=== PATIENT | male | born 1955 | race Caucasian/White ===

== ENCOUNTER → 2023-06-20 | Outpatient (CLI) | payer OTHER | END | disposition home or self-care (01) | LOC: LAB 08:45 → LAB SHORT 08:45 | PROVIDERS: Hospitalist | DX: E11.69 Type 2 diabetes mellitus with other specified complication (principal) | CPT/HCPCS: 82043; 82570 ==

== ENCOUNTER → 2023-07-02 | Outpatient (CLI) | payer OTHER ==
[2023-07-02 15:45] LABS: Hematocrit 43.2 % (37.0-53.0); Hemoglobin 14.2 g/dL (13.5-17.5); Mean Corpuscular HGB Conc 32.9 g/dL (31.5-36.5); Mean Corpuscular Volume 85 fL (80-100); Mean Platelet Volume 10.5 fL (9.1-12.4); Platelet Count 186 K/mm3 (150-400); RDW Coefficient Variation 14.2 % (11.7-14.2); RDW Standard Deviation 43.8 fL (35.1-46.3); Red Blood Cell Count 5.08 M/mm3 (4.30-5.90); White Blood Cell Count 10.88 K/mm3 (4.00-11.30)
[2023-07-02 16:54] LABS: BASOPHILS ABSOLUTE MAN 0.21 K/mm3 (0.00-0.23); BASOPHILS PERCENT MAN 2 % (0-2); EOSINOPHILS ABSOLUTE MAN 0.21 K/mm3 (0.00-0.68); EOSINOPHILS PERCENT MAN 2 % (0-6); LYMPHOCYTES ABSOLUTE MAN 5.65 K/mm3 (0.84-5.20); LYMPHOCYTES PERCENT MAN 52 % (21-46); MONOCYTES ABSOLUTE MAN 0.32 K/mm3 (0.16-1.47); MONOCYTES PERCENT MAN 3 % (4-13); NEUTROPHILS ABSOLUTE MAN 4.46 K/mm3 (1.96-9.15); SEG NEUTROPHILS PERCENT MAN 41 % (41-73); TOTAL CELLS COUNTED 100
== END ==
LOC: LAB SHORT 14:22 → LAB 14:22
PROVIDERS: Hospitalist
DX: R60.0 Localized edema (principal)
CPT/HCPCS: 85025; 85651

== ENCOUNTER 2024-10-14 16:51 | Emergency (ER) | payer OTHER ==
[~2024-10-14] VITALS: Ht 177.8 cm; Wt 68.0 kg
[2024-10-14 17:16] VITALS: BP 177/70
[2024-10-14] MEDS ORDERED: ACET500 PO (18:35)
[2024-10-16] MEDS ORDERED: METF500 PO (08:01)
[2024-10-16] MEDS ORDERED: PANTOPRAZOLE SO40 M2 PO (08:01)
== END 2024-10-14 18:43 | disposition home or self-care (01) ==
LOC: ER 16:51
DX: S06.0X9A Concussion with loss of consciousness of unspecified duration, initial encounter (principal); W50.0XXA Accidental hit or strike by another person, initial encounter
CPT/HCPCS: 70450; 99284-25

== ENCOUNTER 2024-10-15 13:22 | Emergency (ER) | payer OTHER ==
[~2024-10-15] VITALS: Ht 172.7 cm; Wt 70.3 kg
[~2024-10-15 13:22] MED LIST: ACET500 PO
[2024-10-15 13:49] VITALS: BP 145/87
[2024-10-16] MEDS ORDERED: METF500 PO (08:01)
[2024-10-16] MEDS ORDERED: PANTOPRAZOLE SO40 M2 PO (08:01)
[2024-10-16] MEDS ORDERED: TRAZ50 PO (08:02)
[2024-10-16] MEDS ORDERED: ESCI10 PO (08:02)
== END 2024-10-15 14:35 ==
LOC: ER 13:22
DX: R51.9 Headache, unspecified (principal)
CPT/HCPCS: 99284

== ENCOUNTER 2024-10-16 05:16 | Observation (INO) | payer OTHER ==
[~2024-10-16] VITALS: Ht 167.6 cm; Wt 81.7 kg
[2024-10-16 07:58] LABS: BASOPHILS ABSOLUTE AUTO 0.04 K/mm3 (0.00-0.23); BASOPHILS PERCENT AUTO 0 % (0-2); EOSINOPHILS ABSOLUTE AUTO 0.07 K/mm3 (0.00-0.68); EOSINOPHILS PERCENT AUTO 1 % (0-6); Hematocrit 35.4 % (37.0-53.0); Hemoglobin 11.7 g/dL (13.5-17.5); IMMATURE GRAN ABSOLUTE AUTO 0.02 K/mm3 (0.00-0.10); IMMATURE GRAN PERCENT AUTO 0 % (0-1); LYMPHOCYTES ABSOLUTE AUTO 5.22 K/mm3 (0.84-5.20); LYMPHOCYTES PERCENT AUTO 49 % (21-46); MONOCYTES ABSOLUTE AUTO 0.49 K/mm3 (0.16-1.47); MONOCYTES PERCENT AUTO 5 % (4-13); Mean Corpuscular HGB 28.1 pg (26.0-34.0); Mean Corpuscular HGB Conc 33.1 g/dL (31.5-36.5); Mean Corpuscular Volume 85 fL (80-100); Mean Platelet Volume 9.3 fL (9.1-12.4); NEUTROPHILS ABSOLUTE AUTO 4.85 K/mm3 (1.96-9.15); NEUTROPHILS PERCENT AUTO 45 % (41-73); Platelet Count 209 K/mm3 (150-400); RDW Coefficient Variation 13.8 % (11.7-14.2); RDW Standard Deviation 43.2 fL (35.1-46.3); Red Blood Cell Count 4.16 M/mm3 (4.30-5.90); White Blood Cell Count 10.69 K/mm3 (4.00-11.30)
[2024-10-16] MEDS ORDERED: PANTOPRAZOLE SO40 M2 PO ×2 (08:01)
[2024-10-16] MEDS ORDERED: METF500 PO ×2 (08:01)
[2024-10-16] MEDS ORDERED: TRAZ50 PO (08:02)
[2024-10-16] MEDS ORDERED: ESCI10 PO (08:02)
[2024-10-16 08:06] LABS: Source, Urine Clean Catch
[2024-10-16 08:09] LABS: Appearance, Urine Clear (Clear); Bilirubin, Urine Neg (Neg); Blood, Urine 1+ (Neg); Color, Urine Yellow (P-Yellow); Glucose Qualitative, Urine Neg (Neg); Ketones, Urine 2+ (Neg); Leukocyte Esterase, Urine Neg (Neg); Nitrite, Urine Neg (Neg); Protein, Urine 2+ (Neg); Specific Gravity, Urine 1.025 (1.003-1.022); Urobilinogen, Urine NORM (Normal)
[2024-10-16 08:23] LABS: Ethanol (Alcohol), Blood, Med <3 mg/dL; Salicylate <1.7 mg/dL (2.8-20.0)
[2024-10-16 08:32] LABS: Acetaminophen, Random <2.0 ug/mL (10.0-30.0); Alanine Aminotransfer (ALT/SGP 15 U/L (12-78); Albumin, Blood 3.5 g/dL (3.4-5.0); Albumin/Globulin Ratio 1.1 (0.8-1.8); Alk Phos 75 U/L (50-136); Anion Gap 14 mmol/L (3-11); Aspartate Aminotrans (AST/SGOT 17 U/L (12-37); Bilirubin, Total 0.9 mg/dL (0.1-1.0); Blood Urea Nitrogen 20 mg/dL (8-24); Bun/Creatinine Ratio 24.2 (12.0-20.0); CO2, Blood 24 mmol/L (21-32); Calcium, Blood 9.5 mg/dL (8.5-10.1); Chloride, Blood 104 mmol/L (98-108); Creatinine, Blood 0.83 mg/dL (0.60-1.20); Globulin, Blood 3.3 g/dL (2.2-4.0); Glomerular Filtration Rate 95 (60-); Glucose, Blood 127 mg/dL (70-99); Potassium, Blood 3.9 mmol/L (3.5-5.5); Sodium, Blood 138 mmol/L (136-145); Total Protein, Blood 6.8 g/dL (6.4-8.2)
[2024-10-16 08:35] LABS: U Amphetamine Screen Not Detected; U Barbituate Screen Not Detected; U Benzodiazapine Screen Not Detected; U Buprenorphine Screen Not Detected; U Cannabinoids Screen DETECTED; U Cocaine Screen Not Detected; U Methadone Screen Not Detected; U Methamphetamine Screen Not Detected; U Opiates Screen Not Detected; U Oxycodone Screen Not Detected; U Phencyclidine Screen Not Detected
[2024-10-16 08:37] LABS: Bacteria Not Seen /hpf; Squamous Epithelial Cells Not Seen /hpf (Few); White Blood Cells, Urine Not Seen /hpf (0-5)
[2024-10-16] MEDS ORDERED: LORazepam 1 MG Tab PO ONE (09:30)
[2024-10-16] MEDS ORDERED: LORazepam 2 MG Tab PO SCH (16:00)
[2024-10-16] MEDS ORDERED: LORazepam 2 MG/ML 1ML Injection IM SCH (19:25)
[2024-10-16] MEDS ORDERED: ALUMINUM HYDROX PO ONE (19:45)
[2024-10-16] MEDS ORDERED: MAGNESIUM CARB PO ONE (19:45)
[2024-10-16] MEDS ORDERED: MetFORMIN HCl 500 mg PO SCH (20:15)
[2024-10-16] MEDS ORDERED: Omeprazole 20 MG CapCR PO SCH (21:00)
[2024-10-17] MEDS ORDERED: MetFORMIN HCl 500 mg PO SCH (08:00)
[2024-10-19 18:05] VITALS: BP 101/67
== END 2024-10-19 18:06 ==
LOC: ER 05:16 → EOR 05:17
PROVIDERS: ADMIT Student in an Organized Health Care Education/Training Program
DX: F31.5 Bipolar disorder, current episode depressed, severe, with psychotic features (principal); Z79.84 Long term (current) use of oral hypoglycemic drugs; Z79.899 Other long term (current) drug therapy
CPT/HCPCS: 80053; 80320; 81001; 85025; 93005; 93010; 99285-25; A9270; G0378; G0480

== ENCOUNTER 2024-10-19 16:15 | Inpatient (IN) | payer OTHER ==
[~2024-10-19] VITALS: Ht 172.7 cm; Wt 68.6 kg
[~2024-10-19 16:15] MED LIST changes: +ESCI10 PO; +METF500 PO; +PANTOPRAZOLE SO40 M2 PO; +TRAZ50 PO
[2024-10-19] MEDS ORDERED: Melatonin 3 MG Tab PO PRN (17:10)
[2024-10-19] MEDS ORDERED: Aluminum Hydroxide 320MG/5ML 473 ML PO PRN (17:10)
[2024-10-19] MEDS ORDERED: Ibuprofen 600 MG Tab PO PRN (17:10)
[2024-10-19] MEDS ORDERED: FLU VACC TS2024-25(6MOS UP)/PF 45 MCG/0.5 ML SYRINGE IM SCH (17:10)
[2024-10-19] MEDS ORDERED: Calcium Carbonate 500 MG Tab Chew PO PRN (17:10)
[2024-10-19] MEDS ORDERED: Polyethylene Glycol 3350 17 gm PO PRN (17:10)
[2024-10-19] MEDS ORDERED: Acetaminophen 325 MG TABLET PO PRN (17:10)
[2024-10-19] MEDS ORDERED: LORazepam 2 MG/ML 1ML Injection IM PRN (17:15)
[2024-10-19] MEDS ORDERED: LORazepam 2 MG Tab PO SCH (18:00)
[2024-10-19 18:26] VITALS: BP 98/72
[2024-10-19 18:45] VITALS: BP 98/72
[2024-10-19 19:06] VITALS: BP 98/72
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
[2024-10-19 20:31] VITALS: BP 117/73
[2024-10-19] MEDS ORDERED: MetFORMIN HCl 500 mg PO SCH (20:55)
--- NOTE | 2024-10-19 22:37 | NUR ---
SHIFT SUMMARY Pt is A&O, calm, cooperative, eye contact is appropriate. Pt states that his mood is "calm," affect is blunted and sad. Pt denies SI, HI, and hallucinations. No c/o pain. Pt states that he is not and has not been suicidal in years. He admits to a suicide attempt in the remote past. Pt stated that he normally weighs about 178 pounds, but weighed 151 today and has lost this weight since June. Pt had a snack in the dining room. Per provider, pt is not to received any antipsychotic medications DT possible neuroleptic malignant syndrome. Pt is to be given 2mg lorazepam q4h, last dose was at 1941. Staff continues to monitor q15m for safety and wellness.
--- NOTE | 2024-10-19 23:10 | NUR ---
Report received from Minor CHRISTIANSON. Next Ativan due 2400 ON TIME. Patient was OOB asking this RN about the "plan for the night". Explained medication schedule overnight. Also asked about having his children visit him tomorrow afternoon. Explained our visitation schedule and patient was satisfied. Will continue very close monitoring every 15 minutes for safety.
--- NOTE | 2024-10-20 04:49 | NUR ---
Patient is Alert and oriented times 3-4. He is profoundly sad and describes himself as broken. "I did not realize how sick I am". He was pleasant and cooperative with cares and visited with his peers for short periods of time, although he was quite exhausted, and spent quite a bit of time in bed before lights out. No difficulties with pocketing oral medications. Patient was very cooperative with cares. Denies SI or HI during evening assessment, and stated he did not feel he was having any AVTH. Will continue close observations every 15 minutes for safety and comfort
[2024-10-20] MEDS ORDERED: Pantoprazole Sodium 40 MG Tab PO SCH (06:00)
[2024-10-20 08:21] VITALS: BP 104/73
[2024-10-20] MEDS ORDERED: Multivitamins 1 Tab PO SCH (09:00)
[2024-10-20 10:46] LABS: BASOPHILS ABSOLUTE AUTO 0.03 K/mm3 (0.00-0.23); BASOPHILS PERCENT AUTO 0 % (0-2); EOSINOPHILS ABSOLUTE AUTO 0.13 K/mm3 (0.00-0.68); EOSINOPHILS PERCENT AUTO 2 % (0-6); Hematocrit 42.4 % (37.0-53.0); Hemoglobin 13.8 g/dL (13.5-17.5); IMMATURE GRAN ABSOLUTE AUTO 0.02 K/mm3 (0.00-0.10); IMMATURE GRAN PERCENT AUTO 0 % (0-1); LYMPHOCYTES ABSOLUTE AUTO 4.05 K/mm3 (0.84-5.20); LYMPHOCYTES PERCENT AUTO 48 % (21-46); MONOCYTES ABSOLUTE AUTO 0.42 K/mm3 (0.16-1.47); MONOCYTES PERCENT AUTO 5 % (4-13); Mean Corpuscular HGB Conc 32.5 g/dL (31.5-36.5); Mean Corpuscular Volume 86 fL (80-100); Mean Platelet Volume 9.4 fL (9.1-12.4); NEUTROPHILS ABSOLUTE AUTO 3.82 K/mm3 (1.96-9.15); NEUTROPHILS PERCENT AUTO 45 % (41-73); Platelet Count 223 K/mm3 (150-400); RDW Coefficient Variation 13.8 % (11.7-14.2); RDW Standard Deviation 42.5 fL (35.1-46.3); Red Blood Cell Count 4.93 M/mm3 (4.30-5.90); White Blood Cell Count 8.47 K/mm3 (4.00-11.30)
[2024-10-20] MEDS ORDERED: LORazepam 2 MG Tab PO PRN (11:20)
[2024-10-20] MEDS ORDERED: Citalopram Hydrobromide 20 MG Tab PO SCH (11:22)
[2024-10-20 12:21] LABS: Albumin, Blood 3.5 g/dL (3.4-5.0); Albumin/Globulin Ratio 1.1 (0.8-1.8); Bilirubin, Total 0.5 mg/dL (0.1-1.0); Bun/Creatinine Ratio 26.5 (12.0-20.0); Calcium, Blood 9.4 mg/dL (8.5-10.1); Creatinine, Blood 0.91 mg/dL (0.60-1.20); Globulin, Blood 3.3 g/dL (2.2-4.0); Magnesium, Blood 1.6 mg/dL (1.6-2.4); Potassium, Blood 4.4 mmol/L (3.5-5.5); Thyroid Stimulating Hormone 1.28 uIU/mL (0.360-4.800); Total Protein, Blood 6.8 g/dL (6.4-8.2)
--- NOTE | 2024-10-20 17:34 | NUR ---
SHIFT SUMMARY PT AxOx3 WITH INTERM FORGETFULNESS. PT DENIED SI/HI AND AVTH THIS SHIFT. HE WAS CALM AND COOPERATIVE WITH A REPORTED "GOOD" MOOD AT AM ASSESSMENT. LATER IN THE MORNING, THE PATIENT SEEMED TO GET SOMEWHAT RESTLESS. HE STARTED REQUESTING TO CALL AN UBER TO TAKE HIM HOME. HE PERSISTENTLY REQUESTED HIS SHOES AND WALLET. HE STARTED QUESTIONING VARIOUS STAFF TO WHY HE COULDN'T LEAVE, WHY HE COULDN'T WEAR HIS OWN CLOTHING HERE AND WHAT WOULD HAPPEN IF HE TRIED TO LEAVE AND IF HE WOULD BE ARRESTED. HE REPEATED THE SAME QUESTIONS A FEW TIMES, WHICH APPEARED TO BE DUE TO CONFUSION. PT WAS PROVIDED THERAPEUTIC COMMUNICATION, FURTHER EXPLAINING HIS PATIENT RIGHTS AND GIVEN COPIES OF HIS INVOLUNTARY HOLD DOCUMENTATION. PT ALSO SPOKE WITH HIS DAUGHTER, KAMRAN, ON THE PHONE WELL SPOKE AN ADDITIONAL TIME WITH DR. AMBROSIO, THE PSYCHIATRIST. PROVIDER ORDERED MEDICATION CHANGES. HOWEVER, THE PATIENT DECLINED TO TAKE ADDITIONAL NEW MEDS AFTER AM MED PASS. PT IS CURRENTLY WANDERING THE HALLS. HE IS REQUESTING TO SPEAK WITH THE DOCTOR AGAIN STATING CONCERN THAT HE MAY HAVE A BROKEN LEG. PT DENIES ANY PAIN AND IS AMBULATING WITHOUT DIFFICULTY.
[2024-10-20] MEDS ORDERED: DiphenhydrAMINE HCl 50 MG/ML 1ML Vial IM PRN (19:30)
[2024-10-20] MEDS ORDERED: LORazepam 2 MG/ML 1ML Injection IM PRN (19:35)
[2024-10-20] MEDS ORDERED: Haloperidol Lactate Inj. 5 MG/ML Injection IM PRN (19:35)
[2024-10-20] MEDS ORDERED: LORazepam 1 MG Tab PO PRN (19:35)
[2024-10-20] MEDS ORDERED: Haloperidol 5 MG Tab PO PRN (19:35)
[2024-10-20] MEDS ORDERED: DiphenhydrAMINE HCl 50 MG Cap PO PRN (19:35)
--- NOTE | 2024-10-21 00:26 | NUR ---
Patient up at desk upset about receiving haldol against his will. It was explained to him that he refused it and this RN did not give it to him. (Security was in the room with this RN at the time). When he approached the desk, he stated he would be contacting his workers compensation defense attorney as well as the FDA regarding this RN "prescribing" medications out of her scope of practice. This RN explained that the Psychiatrist wrote the RX for the medication for Agitation or aggression for the safety of the patient or others. At that point, the patient asked this nurse if she had ever been through a deposition. Patient was taking notes in a journal during the entire conversation. After that, patient went back to his room and back to bed. Will continue close monitoring every 15 minutes for comfort and safety
[2024-10-21] MEDS ORDERED: Ondansetron 4 MG SoluTab SL PRN (02:35)
--- NOTE | 2024-10-21 02:42 | NUR ---
Patient awoke and came up to desk and stated he was going to leave. He then asked this nurse again why he had been given haldol, and it was explained that he had not been given the medication becaause he had refused. He then said he was allergic to the ativan he had agreed to take because he had a stomach ache, a headache was nauseated and had insomnia. Vital signs were taken and WNL. Dr. Freeman was notified and order for zofran and order for hospitalist consult was received. Patient refused ana moore and said we could call EMS to take him to the hospital. Will continue close observation on camera and in person. Patient then took his tea and went to sit in the sensory room.
[2024-10-21 02:54] VITALS: BP 112/73
--- NOTE | 2024-10-21 03:35 | NUR ---
Call placed to hospitalist to come and see patient who is still c/o headache,nausea and insomnia which he states is an allergic reaction to the Ativan he has been given over the last few days. Awaiting arrival of .
--- NOTE | 2024-10-21 05:00 | NUR ---
Please see hand grinder nurses notes. Patient has been out of bed most of the night. He is waiting for the hospitalist to arrive. He is still c/o nausea, a headache and insomnia. Asking to have hospitalist called a 2nd time. It was explained to him that they will be over here as soon as they can and are aware of his complaints. Patient also just informed this RN that he had voided in his cup, and wanted it sent for a UA. Explained that the hospitalist would have to order a UA, then we would likely need a new specimen. Vital Signs have remained stable since patient got oob and went to sensory room. Patient still refusing medication for nausea and headache stating he will not take them from any of the nurses in the BHU. Will continue close monitoring for safety every 15 minutes.
--- NOTE | 2024-10-21 06:13 | NUR ---
Dr. Díaz in to see patient. Stated he did not feel patient needed to be in the hospital at this time, and that another hospitalist would be in to see him later this morning. will continue close monitoring for safety and comfort. Will re-offer zofran and 0600 protonix at this time.
[2024-10-21 08:11] VITALS: BP 139/87
--- NOTE | 2024-10-21 17:32 | NUR ---
SHIFT SUMMARY PT AxOx3-4 WITH INTERMITTENT FORGETFULNESS. PT HAS BEEN AGITATED ON AND OFF T/O THIS SHIFT. HE HAS BEEN REQUESTING TO LEAVE AND TELLING THE U STAFF THEY ARE HOLDING HIM AGAINST HIS WILL. EXTENSIVE THERAPEUTIC COMMUNICATION PROVIDED TO PATIENT WITH MULTIPLE STAFF MEMBERS INCLUDING THIS RN, PROVIDER, AND DIRECTOR. PT REMINDED OF HIS RIGHTS AND PROVIDED CURRENT INFORMATION ON HIS INVOLUNTARY HOLD. PT'S FAMILY CALLED, KAMRAN (DAUGHTER) AND JENNIE (DAUGHTER IN LAW) WHO WERE BOTH UPDATED ON PLAN OF CARE INCLUDING DETAILS CONFIRMING FAMILY MEETING WITH CARE TEAM TOMORROW AT 10:30AM (10/22/24). THIS MEETING IS TO DISCUSS/DEVELOP SAFE DISCHARGE PLANS. PT DECLINED TAKING ANY NEW MEDICATIONS THIS SHIFT. MOcA TEST ADMINISTERED BY OCCUPATIONAL THERAPIST TODAY. PT APPEARS MORE RELAXED AFTER LEARNING HIS FAMILY WILL BE COMING TO VISIT TOMORROW. HE IS CURRENTLY SITTING IN HIS ROOM. DECLINES NEEDS AT THIS TIME.
[2024-10-21] MEDS ORDERED: Mirtazapine 15 MG Tab PO SCH (21:00)
[2024-10-21 21:11] VITALS: BP 120/69
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
--- NOTE | 2024-10-22 05:39 | NUR ---
PATIENT AWAKE, C/O HAGER 8/10 MEDICATED WITH TYLENOL. GIVEN WARM WASHCLOTH. PATIENT VERBALIZED THAT HE IS EXCITED TO SEE HIS SON TODAY AND IS GOING TO BE GOING HOME WITH HIS FAMILY AFTER VISIT.
[2024-10-22 07:57] VITALS: BP 130/65
[2024-10-22] MEDS ORDERED: Misc. Tablet PO SCH (09:00)
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
[2024-10-22] MEDS ORDERED: MIRT15 PO ×2 (11:35)
[2024-10-22] MEDS ORDERED: ESCI10 PO (11:35)
--- NOTE | 2024-10-22 12:30 | NUR ---
DISCHARGE SUMMARY: 12:28 PT WAS DISCHARGED TO HOME WITH HIS CHILDREN AND BROTHER, WITH ALL OF HIS BELONGINGS AND HIS DISCHARGE INSTRUCTIONS. PT WAS LOOKING FORWARD TO GOING HOME. HIS FAMILY SEEMS VERY SUPPORTIVE AND VERBALIZED THAT HE WILL NOT BE LEFT ALONE AND THAT THEY WILL SEEK NEUROLGY APPOINTMENTS FOR PT.
== END 2024-10-22 12:28 | disposition home or self-care (01) | DRG 885 ==
LOC: BHU 16:15
PROVIDERS: ADMIT Student in an Organized Health Care Education/Training Program
DX: F33.3 Major depressive disorder, recurrent, severe with psychotic symptoms (principal); R11.0 Nausea; Z79.84 Long term (current) use of oral hypoglycemic drugs; Z79.899 Other long term (current) drug therapy
CPT/HCPCS: 36415; 80053; 83735; 83970; 84443; 85025; 86592; A9270

== ENCOUNTER 2024-10-24 16:23 | Observation (INO) | payer OTHER ==
[~2024-10-24] VITALS: Ht 167.6 cm; Wt 80.7 kg
[~2024-10-24 16:23] MED LIST changes: +MIRT15 PO
[2024-10-24 18:42] LABS: Hematocrit 40.9 % (37.0-53.0); Hemoglobin 13.5 g/dL (13.5-17.5); Mean Corpuscular HGB 28.2 pg (26.0-34.0); Mean Corpuscular Volume 86 fL (80-100); Mean Platelet Volume 9.8 fL (9.1-12.4); Platelet Count 219 K/mm3 (150-400); RDW Coefficient Variation 13.8 % (11.7-14.2); RDW Standard Deviation 42.7 fL (35.1-46.3); Red Blood Cell Count 4.78 M/mm3 (4.30-5.90); White Blood Cell Count 10.06 K/mm3 (4.00-11.30)
[2024-10-24 19:05] LABS: BASOPHILS PERCENT MAN 0 % (0-2); EOSINOPHILS PERCENT MAN 2 % (0-6); LYMPHOCYTES % ATYPICAL MANUAL 2 % (0-0); LYMPHOCYTES ABSOLUTE MAN 6.84 K/mm3 (0.84-5.20); LYMPHOCYTES PERCENT MAN 66 % (21-46); MONOCYTES PERCENT MAN 5 % (4-13); NEUTROPHILS ABSOLUTE MAN 2.51 K/mm3 (1.96-9.15); SEG NEUTROPHILS PERCENT MAN 25 % (41-73); TOTAL CELLS COUNTED 100
[2024-10-24 19:19] LABS: Ethanol (Alcohol), Blood, Med <3 mg/dL; Salicylate <1.7 mg/dL (2.8-20.0)
[2024-10-24 19:20] LABS: Alanine Aminotransfer (ALT/SGP 21 U/L (12-78); Albumin, Blood 4.1 g/dL (3.4-5.0); Albumin/Globulin Ratio 1.3 (0.8-1.8); Alk Phos 89 U/L (50-136); Anion Gap 10 mmol/L (3-11); Aspartate Aminotrans (AST/SGOT 16 U/L (12-37); Bilirubin, Total 0.5 mg/dL (0.1-1.0); Blood Urea Nitrogen 24 mg/dL (8-24); Bun/Creatinine Ratio 28.1 (12.0-20.0); CO2, Blood 28 mmol/L (21-32); Calcium, Blood 9.5 mg/dL (8.5-10.1); Chloride, Blood 103 mmol/L (98-108); Creatinine, Blood 0.85 mg/dL (0.60-1.20); Globulin, Blood 3.2 g/dL (2.2-4.0); Glomerular Filtration Rate 94 (60-); Glucose, Blood 136 mg/dL (70-99); Potassium, Blood 3.6 mmol/L (3.5-5.5); Sodium, Blood 137 mmol/L (136-145); Total Protein, Blood 7.3 g/dL (6.4-8.2)
[2024-10-24 19:33] LABS: Source, Urine Clean Catch
[2024-10-24 19:34] LABS: Acetaminophen, Random <2.0 ug/mL (10.0-30.0)
[2024-10-24 19:45] LABS: Appearance, Urine Clear (Clear); Bilirubin, Urine Neg (Neg); Blood, Urine 1+ (Neg); Color, Urine Yellow (P-Yellow); Glucose Qualitative, Urine Neg (Neg); Ketones, Urine Neg (Neg); Leukocyte Esterase, Urine 1+ (Neg); Nitrite, Urine Neg (Neg); Protein, Urine 2+ (Neg); Specific Gravity, Urine 1.025 (1.003-1.022); Urobilinogen, Urine NORM (Normal)
[2024-10-24 19:54] LABS: Bacteria Mod /hpf; Hyaline Casts 0-2 /lpf (0-2); Mucus Mod (0-Heavy); Red Blood Cells, Urine 0-2 /hpf (0-2); Squamous Epithelial Cells Rare /hpf (Few)
[2024-10-24 19:56] LABS: U Benzodiazapine Screen DETECTED; U Cannabinoids Screen DETECTED
[2024-10-24 19:57] LABS: U Amphetamine Screen Not Detected; U Barbituate Screen Not Detected; U Buprenorphine Screen Not Detected; U Cocaine Screen Not Detected; U Methadone Screen Not Detected; U Methamphetamine Screen Not Detected; U Opiates Screen Not Detected; U Oxycodone Screen Not Detected; U Phencyclidine Screen Not Detected
[2024-10-24] MEDS ORDERED: Ziprasidone Mesylate 20 MG / Vial IM ONE (22:50)
[2024-10-25] MEDS ORDERED: Citalopram Hydrobromide 20 MG Tab PO ONE (12:55)
[2024-10-25] MEDS ORDERED: MetFORMIN HCl 500 mg PO ONE ×2 (12:55→13:05)
[2024-10-25] MEDS ORDERED: OLANZapine 10 MG Vial IM ONE (13:25)
[2024-10-25] MEDS ORDERED: LORazepam 2 MG/ML 1ML Injection IM ONE (13:25)
[2024-10-25] MEDS ORDERED: LORazepam 1 MG Tab PO PRN (15:05)
[2024-10-25] MEDS ORDERED: MetFORMIN HCl 500 mg PO SCH (17:00)
[2024-10-25] MEDS ORDERED: Mirtazapine 15 MG Tab PO SCH (21:00)
[2024-10-26] MEDS ORDERED: Pantoprazole Sodium 40 MG Tab PO SCH (06:00)
[2024-10-26] MEDS ORDERED: Citalopram Hydrobromide 20 MG Tab PO SCH (09:00)
[2024-10-26] MEDS ORDERED: Bisacodyl 10 MG Supp PR ONE (11:35)
[2024-10-26 18:45] VITALS: BP 136/77
[2024-10-26 20:10] VITALS: BP 137/72
[2024-10-26] MEDS ORDERED: VITAMIN D5000 UNIT PO (20:20)
[2024-10-27] MEDS ORDERED: TRULICITY3 MG/0.5 M SC (01:06)
== END 2024-10-26 23:39 | disposition other institution (70) ==
LOC: ER 16:23 → EOR 16:24
PROVIDERS: ADMIT Student in an Organized Health Care Education/Training Program
DX: F29 Unspecified psychosis not due to a substance or known physiological condition (principal); F32.9 Major depressive disorder, single episode, unspecified; Z79.899 Other long term (current) drug therapy
CPT/HCPCS: 80053; 80320; 81001; 82947; 85025; 87086; 93005; 93010; 96372; 99285-25; A9270; G0378; G0480; J2060; J3486

== ENCOUNTER 2024-10-26 12:21 | Inpatient (IN) | payer OTHER ==
[~2024-10-26] VITALS: Ht 172.7 cm; Wt 68.2 kg
[2024-10-26] MEDS ORDERED: Haloperidol 5 MG Tab PO PRN (18:40)
[2024-10-26] MEDS ORDERED: Ibuprofen 600 MG Tab PO PRN (18:40)
[2024-10-26] MEDS ORDERED: Polyethylene Glycol 3350 17 gm PO PRN (18:40)
[2024-10-26] MEDS ORDERED: OLANZapine ODT 10 MG Tab MM PRN (18:40)
[2024-10-26] MEDS ORDERED: LORazepam 2 MG Tab PO PRN (18:40)
[2024-10-26] MEDS ORDERED: Calcium Carbonate 500 MG Tab Chew PO PRN (18:45)
[2024-10-26] MEDS ORDERED: TraZODone HCl 50 MG Tab PO PRN (18:45)
[2024-10-26] MEDS ORDERED: DiphenhydrAMINE HCl 50 MG Cap PO PRN (18:45)
[2024-10-26] MEDS ORDERED: Melatonin 3 MG Tab PO PRN (18:45)
[2024-10-26] MEDS ORDERED: DiphenhydrAMINE HCl 50 MG/ML 1ML Vial IV PRN (18:45)
[2024-10-26] MEDS ORDERED: Acetaminophen 325 MG TABLET PO PRN (18:45)
[2024-10-26] MEDS ORDERED: FLU VACC TS2024-25(6MOS UP)/PF 45 MCG/0.5 ML SYRINGE IM ONE (18:45)
[2024-10-26] MEDS ORDERED: Aluminum Hydroxide 320MG/5ML 473 ML PO PRN (18:45)
[2024-10-26] MEDS ORDERED: Ondansetron 4 MG SoluTab MM PRN (18:55)
[2024-10-26] MEDS ORDERED: VITAMIN D5000 UNIT PO (20:20)
[2024-10-26] MEDS ORDERED: Pantoprazole Sodium 40 MG Tab PO SCH (21:00)
[2024-10-26] MEDS ORDERED: OLANZapine 5 MG Tab PO SCH (21:00)
--- NOTE | 2024-10-26 21:04 | NUR ---
Patients clothes have been washed and dried, placed in patient bags, place in the patients bin and the bin is in the storage room.
[2024-10-27] MEDS ORDERED: TRULICITY3 MG/0.5 M SC (01:06)
--- NOTE | 2024-10-27 04:26 | NUR ---
SHIFT SUMMARY PATIENT RESTLESS AND PACING HAWKINS AT BEGINNING OF SHIFT WANTING TO CALL HIS . PATIENT ABLE TO CALL HIS SON AMBER AND HIS BROTHER. AFTER PATIENT MADE HIS CALL NURSING STAFF RECEIVED A CALL FROM AMBER TO INFORM US THAT PATIENTS IS NOT TO BE ON THE CONTACT LIST AND THAT ALL CALLS SHOULD BE DIRECTED THROUGH HIM (AMBER). PATIENT DENIES SI, HI, OR AVH. REQUIRING DISCUSSION ABOUT HIS MEDICATION BEFORE TAKING HIS HS MEDS. PATIENT NEEDING FREQUENT REMINDERS TO NOT GO INTO OTHER PATIENTS ROOMS. PATIENT VERY VOCAL WITH PEERS AND STAFF REGARDING RASTAFARI. FREQUENTLY ATTEMPTING TO ARRANGE ACTIVITIES OUTSIDE OF THERAPY WITH BOTH STAFF AND PEERS. PATIENT AWAKE AT 0030 AND RESTLESS, AT 0100 2ND DOSE OF TRAZODONE GIVEN PATIENT APPEARS TO BE SLEEPING RESP EVEN AND UNLABORED. CONTINUE Q15MIN CHECKS.
--- NOTE | 2024-10-27 06:42 | NUR ---
AT 0600 PATIENT AWAKE SITTING IN SENSORY ROOM WRITING LETTER. NOW SITTING OUT BY NURSES STATION.
[2024-10-27] MEDS ORDERED: MetFORMIN HCl 500 mg PO SCH (08:00)
[2024-10-27 08:13] VITALS: BP 114/63
[2024-10-27] MEDS ORDERED: Citalopram Hydrobromide 20 MG Tab PO SCH (09:00)
[2024-10-27] MEDS ORDERED: Multivitamins 1 Tab PO SCH (09:00)
[2024-10-27] MEDS ORDERED: Cholecalciferol 1000 Unit Tablet (=25MCG) PO SCH (09:00)
[2024-10-27] MEDS ORDERED: Gabapentin 300 MG Cap PO SCH (14:00)
--- NOTE | 2024-10-27 14:14 | NUR ---
IMPORTANT INFORMATION Dr. Hull to assess patient for guardianship per patient family's request on 10/28 [facility] charge manager notified
--- NOTE | 2024-10-27 16:32 | NUR ---
PT A/O X4. IS IN A HAPPY MOOD. HAS PARTICIPATED IN GROUPS AND INTERACTS WITH OTHERS. HE HAS BEEN REMINDED TO HIS BOUNDRIES HE HAS MADE COMMENTS TO OTHERS AND STAFF HAD TO DISCUSS HIS BEHAVIOR. PT RECEPTIVE OF HIS OWN BEHAVIOR UNACCEPTABLE IN HYPERSEXUALALITY. COMMENTS. HAS BEEN COOPERATIVE WITH MEDS AND MEALS. PT NEEDS CLOSE OBSERVATION WHEN AROUND OTHERS FOR INAPPROPRIATE BEHAVIOR PRECATIONS.
[2024-10-27 20:06] VITALS: BP 126/70
[2024-10-27] MEDS ORDERED: Glycerin Adult Supp 1 EA PR ONE (21:05)
--- NOTE | 2024-10-28 04:39 | NUR ---
SHIFT SUMMARY, NOC AT START OF SHIFT PT WAS IN THE DAY ROOM, WATCHING TV, HE WAS ALONE. OUR TWO MHA'S SAT WITH HIM. THEY WERE HAVING A QUIET CONVERSATION AND AFTER AWHILE THE PT JUMPED IN ON THEIR CONVERSATION GIVING HIS OPINION AND WHAT THEIR OTHER OPTIONS MIGHT BE HE TENDS TO DO THIS WITH EVERYONE. THIS RN ENTERED ROOM AND SAT AT PUZZLE TABLE. WHEN ASKED PT STATED HE FEELS GOOD TONIGHT HE NOW KNOWS WHAT IS WRONG WITH HIM, HE STATED HE HAS DEMENTIA. PT PARTICIPATED IN MED PASS AND SNACKS, FAIRLY APPROPRIATE. AT MED PASS HE WAS ASKED IF HE NEEDED A SLEEP HE DID LAST NIGHT. HE STATED "NO I THINK I'D LIKE TO TRY IT WITHOUT IT TONIGHT" HE THEN WATCHED TV FOR ABOUT ANOTHER HOUR AND THEN APPROACHED THE DESK AND STATED HE APPRECIATED EVERYONE HERE SAID "BANDAR, I'M GOING TO TRY AND GET SOME GOOD REST" PT HAS BEEN IN BED SINCE THAT TIME. ADDITIONAL: LAST NIGHT, BEFORE BED, HE DID ASK FOR A SUPPOSITORY, REQUESTED AND ORDER IS IN, IT NEEDS TO COME FROM PHARMACY. SAFETY CHECKS Q15 TO ENSURE PT SAFETY.
[2024-10-28 08:22] VITALS: BP 139/73
[2024-10-28] MEDS ORDERED: Glycerin Adult Supp 1 EA PR ONE (09:30)
--- NOTE | 2024-10-28 16:07 | NUR ---
IMPORTANT HOSPITAL INFORMATION PATIENT HAS A FOLLOW UP APPOINTMENT WITH DR. REA ON: 11/05/24 AT10:50AM REQUESTED [facility] FOR: SN DISEASE PROCESS EDUCATION, OT FOR COGNITION, DITCH DIGGER FOR CARE GIVING SERVICES AND COMMUNITY RESOURCES. PATIENT'S PHARMACY: [facility] FAMILY HAS BEEN NOTIFIED: AMBER (SON)
--- NOTE | 2024-10-28 17:52 | NUR ---
Spiritual Care Physician Consult AND Pt. Request Met Pt. at the [facility]. Pt. welcomed my visit. Facilitated a rambling life story. Listened with empathy and interest and a desire seek understanding of his concerns. Pt. displayed evidence of trust. Prayed with the Pt. and gave pastoral parliamentary counsel as he requested. Pt. hugged this oil and gas exploration technician and verbalized gratitude for the prompt response to his spiritual care request.
--- NOTE | 2024-10-28 18:29 | NUR ---
SHIFT SUMMARY PT A/O X3; HE DENIES SI, HI, OR HALLUCINATIONS. HE MET WITH DR. BURNS REGARDING GUARDIANSHIP (SEE NOTE). PT SPOKEN TO BY HORSE FARM MANAGER ABOUT BEING APPROPRIATE WITH STAFF AND FEMALE PTS. PT VERBALIZED UNDERSTANDING. HE MET WITH HIS SON AND BROTHER THIS SHIFT AND THE VISIT SEEMED TO GO WELL. HE PARTICIPATED IN ALL GROUPS AND MEALS. PT MONITORED VIA Q15 ROUNDING FOR SAFETY.
[2024-10-28 20:48] VITALS: BP 141/73
[2024-10-28] MEDS ORDERED: OLANZapine 5 MG Tab PO SCH (21:00)
--- NOTE | 2024-10-29 04:38 | NUR ---
SHIFT SUMMARY PT PRESENT ON UNIT AT START OF SHIFT, CONVERSING WITH PEER. PT IS A&O, PLEASANT AND COOPERATIVE. PT HAD EVENING SNACK, WAS COMPLIANT WITH MEDICATIONS. HE RECEIVED PRN TRAZODONE AT APPROIMATLEY 2200 AND WENT TO BED. PT AWOKE AROUND 0400, STATES HE SLEPT WELL, ABOUT 6 HOURS. PT IS CURRENTLY LAYING IN BED, JOURNALING. Q15 MINUTE CHECKS TO CONTINUE PER UNIT PROTOCOL AND FOR SAFETY.
[2024-10-29 07:57] VITALS: BP 117/76
--- NOTE | 2024-10-29 17:17 | NUR ---
SHIFT SUMMARY PT A/O X3 AND FORGETFUL AT TIMES. HE IS PLEASANT/COOPERATIVE WITH CARE AND ENJOYS TALKING WITH HIS PEERS IN THE HALLWAY. PT TO POTENTIALLY DISCHARGE ON TOMORROW. PT TO POSSIBLY GO HOME WITH HOME HEALTH AND THEN SELL HOME TO MOVE OUT OF STATE WITH SON. PT IS EAGER TO DISCHARGE BUT AGREEABLE TO STAY AT THIS TIME. HE DENIES SI. HI, OR HALLUCINATIONS.
[2024-10-29 20:55] VITALS: BP 111/72
--- NOTE | 2024-10-30 00:29 | NUR ---
PATIENT NOTE PT PACING HALLS WITH PEERS AT START OF SHIFT. HE WAS CALM AND COOPERATIVE AND LOOKING FORWARD TO BEING DISCHARGED. HE DENIES ANY SI, HI, THOUGHTS OF SELF HARM OR HALLUCINATIONS. WHILE IN THE GROUP ROOM WITH PEERS PT NEEDED TO BE REMINDED TO MAINTAIN PERSONAL BOUNDARIES. HE WAS COMPLIANT WITH MEDS. AFTER EVENING SNACK PT BECAME UPSET REGARDING ANOTHER PT'S MEDICAL CARE. PT WENT TO HIS ROOM AND SLAMMED THE DOOR. PT STATING THAT HE HAS TO REACT THIS WAY IN ORDER TO GET NOTICED AND FOR STAFF TO RESPOND. THIS RN INFORMED PT THIS BEHAVIOR IS UNACCEPTABLE AND THAT WE CAN NOT DISCUSS ANOTHER PATIENT'S CARE. THIS RN STAYED IN SENSORY ROOM AND LISTENED TO PT. HE WAS GRANDIOSE, TEARFUL AT TIMES, AND HAD PERSERVATION OF THOUGHT. PT SEEMED TO CALM DOWN AND HAD PRN DOSE OF TRAZODONE. PT PRESENTED TO NURSES STATION MULTIPLE TIMES, STATED HE WAS GOING TO STAY UP ALL NIGHT TO FINISH THE BOOK HE IS WRITING. PT C/O NO BM X5 DAYS. BT'S + X4 QUADRANTS, ABDOMEN IS SOFT AND NON-TENDER TO PALPATION. PT NOTED TO RECEIVED MIRALAX ON DAYSHIFT. PT RECIEVED ADDITIONAL TRAZODONE AND MELATONIN AND WENT TO HIS ROOM. Q15 MINUTE CHECKS TO CONTINUE PER UNIT PROTOCOL AND FOR SAFETY.
--- NOTE | 2024-10-30 04:32 | NUR ---
END OF SHIFT UPDATE PT HAS APPEARED TO SLEEP, WITH RESPIRATIONS CONFIRMED, AFTER RECEIVING MELATONIN AND HIS SECOND DOSE OF TRAZODONE. STAFF WILL CONTINUE TO MONITOR Q15 PER UNIT PROTOCOL/SAFETY.
[2024-10-30] MEDS ORDERED: ClonazePAM 0.5 MG Tab PO PRN (08:45)
[2024-10-30] MEDS ORDERED: Mineral Oil 133 ML Enema PR ONE (10:50)
--- NOTE | 2024-10-30 15:48 | NUR ---
PT UP IN ROOM AND CAME OUT AT 0630 WANTING COFFEE. LET HIM KNOW IT WILL BE SERVED WITH BREAKFAST. HE SAID "OK I WILL GO SLEEP SOMEMORE AND WENT BACK TO BED. CAME OUT TO BREAKFAST. TOOK MEDS. PT IN GRANDIOSE MANNERS. PT C/O NEEDING A SUPOSITORY STATING HE HASN'T HAD A BM IN 6 DAYS. BOWEL SOUNDS HYPERACTIVE IN ALL QUADS. ALL AREA SOFT. PT BECAME DEMANDING IN WANTING AN ENEMA AND DEMANDED IT TO BE IN 15 MINUTES AND HE WAS GOING TO [facility] STATED THAT HIS COLON IS "SO PACKED UP BECAUSE NOTHING HAS BEEN PROCESSING." AFTER PT BECOMING UN DIRECTEDABLE AND CALM, DR AMBROSIO CALLED AND AN ENEMA WAS ORDERED. PT WAS LOUD AND DEMANDING OF THIS ENEMA. PT NEEDS TO BE MOITORED IN LINE OF SIGHT DOES SEEM TO WANDER INTO AREAS THAT HE ISN'T SUPPOSED TO BE. PT IS SOMETIMES PLEASANT AND SOMETIMES UNPLEASANT IN CONVERSATION. WILL CONTINUE TO MONITOR. SON AND BROTHER IN TODAY FOR LONG VISIT WITH PT AAND DIRECTOR PRODUCT DEVELOPMENT CHRISTIANA CHRISTIANSON. WILL CONTINUE TO MONITOR.
--- NOTE | 2024-10-30 19:35 | NUR ---
SHIFT SUMMARY: PT ALERT AND IS ORIENTED. PT HAS BEEN QUITE AND SLEEPING SINCE AFTER VISIT WITH BROTHER AND SON AND IS AROUSABLE ON NAME CALLED OUT WHEN CHECKING ON HIM. THE VISIT HAS MADE HIM TIRED. PLEASE SEE PREVIOUS NOTE. PT HAS BEEN. WILL CONTINUE TO MONITOR FOR SAFETY AND WELLNESS. PT DID NOT EAT DINNER BY SLEEPING. ENEMA WAS " THE PLUG CAME OUT AND A LITTLE BM'" PT DID NOT FULLY STATE THE ENEMA WAS EFFECTVE ALTHOUGH HE HAS HAD NO COMPLAINT OF ABDOMINAL PAIN SINCE ENEMA. WILL CONTINUE TO MONITOR.
[2024-10-30 20:06] VITALS: BP 128/86
[2024-10-30 20:27] VITALS: BP 128/81
[2024-10-30] MEDS ORDERED: OLANZapine 10 MG Tab PO SCH (21:00)
[2024-10-31] MEDS ORDERED: Celexa20 MG PO (02:51)
[2024-10-31] MEDS ORDERED: CLON.5 PO (02:53)
[2024-10-31] MEDS ORDERED: GABA300 PO (02:55)
[2024-10-31] MEDS ORDERED: OLAN10 PO (02:56)
--- NOTE | 2024-10-31 04:39 | NUR ---
SHIFT SUMMARY PT IN BED AT START OF SHIFT, SLEEPING, AWAKES EASILY. PT DENIES ANY SI, HI, THOUGHTS OF SELF HARM OR AVH. PT WAS CALM AND COOPERATIVE, COMPLIANT WITH MEDICATIONS. HE HAD EVENING SNACK, WATCHED TV AND WAS INTERACTIVE WITH STAFF AND PEERS. PT HAD PRN TRAZODONE AND MELATONIN AND WENT TO BED AROUND 2144. HE HAS APPEARED TO SLEEP WELL, WITH RESPIRATIONS CONFIRMED. Q15 MINUTE CHECKS TO CONTINUE PER UNIT PROTOCOL/PT SAFETY.
[2024-10-31 07:59] VITALS: BP 133/77
--- NOTE | 2024-10-31 10:55 | NUR ---
VISITOR AT DOOR REQUESTING TO SEE PT TO SERVE HIM WITH PAPERS. SPOKE WITH ARMHOLE BASTER JUMPBASTING R/T UNIT CONFIDENTIALITY. VISITOR WILL NEED TO CONTACT PATIENT AFTER DISCHARGING HOME. SPOKE WITH VISITOR AND LET THEM KNOW THAT THEY WILL NEED TO CONTACT HIS FAMILY TO SERVE THE PAPERS.
--- NOTE | 2024-10-31 11:57 | NUR ---
Patient's son sought guardianship on 10/30. Discussed calista patient served with documentation on 10/31 after discharge with [facility]. senior sql server developer arrived to [facility] on 10/31 and was denied access due to HIPAA and security reasons. Family employment law attorney contacted [facility] director with statements of lawsuits for not allowing the director process engineering on the unit. Director explained the situation and that the patient was prepared to leave if the family wanted to milk pickup driver the patient and have the patient served off the unit. This was agreed upon. The patient family arrived at [facility] at 1150 on 10/31 for patient milk pickup driver. Security and [facility] Director walked patient off unit and handed off to family without issue.
== END 2024-10-31 11:50 | disposition home or self-care (01) | DRG 885 ==
LOC: BHU 12:21
PROVIDERS: ADMIT Orthopaedic Surgery
DX: F33.3 Major depressive disorder, recurrent, severe with psychotic symptoms (principal); F06.70 Mild neurocognitive disorder due to known physiological condition without behavioral disturbance; R73.03 Prediabetes; F12.10 Cannabis abuse, uncomplicated; N40.0 Benign prostatic hyperplasia without lower urinary tract symptoms; Z96.652 Presence of left artificial knee joint; Z96.611 Presence of right artificial shoulder joint; Z98.1 Arthrodesis status; Z87.19 Personal history of other diseases of the digestive system; Z98.890 Other specified postprocedural states; Z90.49 Acquired absence of other specified parts of digestive tract; Z79.899 Other long term (current) drug therapy; Z79.1 Long term (current) use of non-steroidal anti-inflammatories (NSAID); Z79.84 Long term (current) use of oral hypoglycemic drugs
CPT/HCPCS: A9270

== ENCOUNTER 2024-12-23 07:53 | Emergency (ER) | payer OTHER ==
[~2024-12-23] VITALS: Ht 177.8 cm; Wt 65.8 kg
[~2024-12-23 07:53] MED LIST changes: +CLON.5 PO; +Celexa20 MG PO; +GABA300 PO; +OLAN10 PO; +TRULICITY3 MG/0.5 M SC; +VITAMIN D5000 UNIT PO
[2024-12-23 09:02] VITALS: BP 132/72
[2024-12-23] MEDS ORDERED: LORazepam 1 MG Tab PO ONE (09:20)
[2024-12-23] MEDS ORDERED: Prozac40 MG PO (09:41)
[2024-12-23] MEDS ORDERED: OLAN5 PO (09:42)
[2024-12-23] MEDS ORDERED: LORA.5 PO ×2 (09:42→10:02)
[2024-12-23] MEDS ORDERED: MIRT15 PO (10:02)
== END 2024-12-23 10:07 | disposition home or self-care (01) ==
LOC: ER 07:53
DX: F41.9 Anxiety disorder, unspecified (principal); Z79.899 Other long term (current) drug therapy
CPT/HCPCS: 99282; A9270

== ENCOUNTER → 2025-03-11 | Outpatient (CLI) | payer OTHER ==
[~2025-03-11] MED LIST changes: +LORA.5 PO; +OLAN5 PO; +Prozac40 MG PO
[2025-03-11 13:49] LABS: BASOPHILS ABSOLUTE AUTO 0.03 K/mm3 (0.00-0.23); BASOPHILS PERCENT AUTO 0 % (0-2); EOSINOPHILS ABSOLUTE AUTO 0.11 K/mm3 (0.00-0.68); EOSINOPHILS PERCENT AUTO 1 % (0-6); Hematocrit 38.9 % (37.0-53.0); Hemoglobin 12.9 g/dL (13.5-17.5); IMMATURE GRAN ABSOLUTE AUTO 0.02 K/mm3 (0.00-0.10); IMMATURE GRAN PERCENT AUTO 0 % (0-1); LYMPHOCYTES ABSOLUTE AUTO 4.81 K/mm3 (0.84-5.20); LYMPHOCYTES PERCENT AUTO 52 % (21-46); MONOCYTES ABSOLUTE AUTO 0.44 K/mm3 (0.16-1.47); MONOCYTES PERCENT AUTO 5 % (4-13); Mean Corpuscular HGB Conc 33.2 g/dL (31.5-36.5); Mean Corpuscular Volume 88 fL (80-100); NEUTROPHILS ABSOLUTE AUTO 3.82 K/mm3 (1.96-9.15); NEUTROPHILS PERCENT AUTO 41 % (41-73); NRBC ABSOLUTE 0.00 K/mm3 (0.00-0.02); NRBC Auto 0.0 /100 WBC (0.0-0.2); Platelet Count 166 K/mm3 (150-400); RDW Coefficient Variation 14.8 % (11.7-14.2); RDW Standard Deviation 47.9 fL (35.1-46.3)
[2025-03-11 14:50] LABS: Creatinine, Urine Random 110.0 mg/dL (27.00-270.00); Microalb/Creat Ratio UR, Rand 21.182 mg/g (0.000-30.000); Microalbumin, Random Urine 23.3 mg/L (0.000-20.000)
[2025-03-11 15:19] LABS: Anion Gap 8 mmol/L (3-11); Blood Urea Nitrogen 23 mg/dL (8-24); CHOL/HDL RATIO 2.4; CO2, Blood 29 mmol/L (21-32); Calcium, Blood 9.1 mg/dL (8.5-10.1); Chloride, Blood 105 mmol/L (98-108); Cholesterol 143 mg/dL (50-200); Creatinine, Blood 0.72 mg/dL (0.60-1.20); Ferritin, Serum 6 ng/mL (26-388); Glucose, Blood 118 mg/dL (70-99); HDL Cholesterol 59 mg/dL (>39); LDL/HDL RATIO 1.1; Low Density Lipoprotein Chol 67 mg/dL (0-110); Potassium, Blood 3.9 mmol/L (3.5-5.5); Sodium, Blood 138 mmol/L (136-145); Total Iron Binding Capacity 377 ug/dL (250-450); Triglycerides 83 mg/dL (30-160); Very Low Density Lipoprot Chol 16 mg/dL (6-32)
== END | disposition home or self-care (01) ==
LOC: LAB SHORT 12:06 → LAB 12:06
PROVIDERS: Hospitalist
DX: D50.8 Other iron deficiency anemias (principal); E11.69 Type 2 diabetes mellitus with other specified complication; E78.2 Mixed hyperlipidemia
CPT/HCPCS: 80048; 80061; 82043; 82570; 82728; 83036; 83540; 83550; 85025